=== PATIENT | female | born 1995 | race Caucasian/White ===

== ENCOUNTER 2024-07-28 06:24 | Day surgery (SDC) | payer BC, SELFPAY | END 2024-07-28 14:15 | disposition home or self-care (01) | LOC: GI 06:24 | PROVIDERS: ATTENDING PHYSICIAN Internal Medicine Gastroenterology | DX: R12 Heartburn (principal); K44.9 Diaphragmatic hernia without obstruction or gangrene; K31.89 Other diseases of stomach and duodenum; R93.3 Abnormal findings on diagnostic imaging of other parts of digestive tract | CPT/HCPCS: 43239; 91035; 88305; 88342 ==

== ENCOUNTER → 2025-04-17 14:42 | Outpatient (REF) | payer BC, SELFPAY | LOC: HWRAD 14:42 | PROVIDERS: FAMILY PHYSICIAN Family Medicine | DX: M54.50 Low back pain, unspecified (principal); G89.29 Other chronic pain | CPT/HCPCS: 72100 ==